=== PATIENT | male | born 1950 | race Caucasian/White ===

== ENCOUNTER → 2020-10-04 | Outpatient (CLI) | payer OTHER | LOC: M.MRI 08:19 | PROVIDERS: ATTEND Orthopaedic Surgery | DX: M17.11 Unilateral primary osteoarthritis, right knee (principal); G57.02 Lesion of sciatic nerve, left lower limb; M70.62 Trochanteric bursitis, left hip ==

== ENCOUNTER → 2021-04-02 | Outpatient (CLI) | payer OTHER ==
[~2021-04-02] MED LIST: ADULT LOW DOSE81 MG PO; CHLORTHALIDONE25 MG PO; COREG6.25 MG PO; ELIQUIS5 MG PO; HYDRALAZINE 2525 M1 PO; LOSARTAN POTASS50 MG PO; MEN'S ONE DAIL1 EAC1 PO; NORVASC5 MG PO; ROSUVASTATIN CA20 MG PO; VITAMIN D310 MC2 PO
[2021-04-02 09:07] LABS: ABSOLUTE EOSINOPHILS 0.1 thou/uL (0.0-0.7); ABSOLUTE LYMPHOCYTES 2.5 thou/uL (0.8-5.3); ABSOLUTE MONOCYTES 0.9 thou/uL (0.0-1.2); ABSOLUTE NEUTROPHILS 6.2 thou/uL (1.6-8.1); BASOPHILS 0.5 %; EOSINOPHILS 1.3 %; HEMATOCRIT 41.8 % (42.0-52.0); HEMOGLOBIN 14.5 gm/dL (14.0-18.0); LYMPHOCYTES 25.6 %; MCHC 34.6 g/dL (28.0-37.0); MCV 89.4 fL (80.0-100.0); MONOCYTES 9.2 %; MPV 6.6 fl. (7.2-11.1); NUCLEATED RBCS 0 /100WBC; PLATELET COUNT* 285 thou/uL (150-400); POLYS 63.4 %; RBC 4.68 mil/uL (4.50-6.00); RDW-CV 13.7 % (10.5-14.5); WBC 9.8 thou/uL (4.0-11.0)
[2021-04-02 09:12] LABS: URINE BILIRUBIN NEGATIVE (Negative); URINE BLOOD NEGATIVE (Negative); URINE CLARITY CLEAR; URINE COLOR YELLOW; URINE GLUCOSE-RANDOM NEGATIVE (Negative); URINE KETONES NEGATIVE (Negative); URINE LEUKOCYTES-REFLEX NEGATIVE (Negative); URINE NITRITE-REFLEX NEGATIVE (Negative); URINE PROTEIN NEGATIVE (Negative); URINE SPECIFIC GRAVITY 1.025 (1.005-1.030)
[2021-04-02 09:16] LABS: PROTIME 10.9 Seconds (9.20-11.50)
[2021-04-02 09:37] LABS: ALBUMIN 3.5 g/dL (3.4-5.0); CALCIUM 8.4 mg/dL (8.5-10.1); POTASSIUM 3.6 mmol/L (3.5-5.1); TOTAL BILIRUBIN 0.7 mg/dL (<0.1-1.0)
--- NOTE | 2021-04-02 11:20 | EKG ---
[place] [address] ELECTROCARDIOGRAM REPORT Name: GRACIE SORTO Room: [facility]#: [id number] Admission: 04/02/21 Attend Phys: Gracie Silva, Discharge: Date of : 46 Date of Service: 04/02/21 1009 Report #: [id number] THIS REPORT FOR: //name// [facility] Test Date: 2021-04-02 Test Time: 10:09:27 Pat Name: GRACIE SORTO Department: Room: Gender: Tire Tester: ILEANA MERRITT : 1950 Requested By: Gracie Silva Order Number: [id number] Evaristo MD: Earl Harley Measurements Intervals [place] Rate: 57 P: 27 MI: 201 QRS: 22 QRSD: 157 T: 82 QT: 471 QTc: 459 Interpretive Statements Sinus bradycardia Right bundle branch block Baseline wander in lead(s) V2,V6 Compared to ECG 06/24/2009 09:18:45 Right bundle-branch block now present Electronically Signed On 04-02-2021 11:19:58 CDT by Earl Harley [email or web address] <ELECTRONICALLY SIGNED> By: Earl Harley MD, [facility] 04/02/21 1119 1009 1009 Earl Harley MD, [facility] /EPI
== END ==
LOC: M.LAB 05:35
PROVIDERS: ATTEND Orthopaedic Surgery
DX: Z01.818 Encounter for other preprocedural examination (principal); Z01.812 Encounter for preprocedural laboratory examination; I45.10 Unspecified right bundle-branch block; R00.1 Bradycardia, unspecified; M16.11 Unilateral primary osteoarthritis, right hip

== ENCOUNTER → 2021-04-08 | Outpatient (CLI) | payer OTHER ==
[~2021-04-08] VITALS: Ht 170.2 cm; Wt 84.8 kg
--- NOTE | ~2021-04-08 | H ---
[address] [address] HISTORY AND PHYSICAL Name: GRACIE SORTO Freya Room: [address] Alfredo Thomson#: [id number] Admission: 04/08/21 Attend Phys: Jeramie Solorzano Discharge: 04/08/21 Date of : 46 Report #: [id number] THIS REPORT FOR: cc: Charanjit Murphy Vincent R. DO [facility],Medical Records Staff ~ For History and Physical please refer to the orthopedic office note in the patient's medical record. By: [id number] Records Staff BRITTNEY /MICHAEL
== END ==
LOC: M.ORTHSURG 06:18 → M.LAB 08:43 → M.ORTHSURG 08:43 → M.TBA 08:43 → EDSTATUS 12:57 → M.ORTHSURG 15:48 → EDSTATUS 16:44 → M.ORTHSURG 16:49
PROVIDERS: ATTEND Internal Medicine
DX: M16.12 Unilateral primary osteoarthritis, left hip (principal)

== ENCOUNTER 2021-04-22 07:01 | Observation (INO) | payer OTHER ==
[~2021-04-22] VITALS: Ht 170.2 cm; Wt 83.9 kg
--- NOTE | ~2021-04-22 | OP ---
[facility] [address] [place] [address] OPERATIVE REPORT Name: GRACIE SORTO Room: [address] Alfredo Thomson#: [id number] Admission: 04/22/21 Attend Phys: Jeramie Solorzano Discharge: Date of : 46 Report #: [id number] THIS REPORT FOR: cc: Charanjit Murphy Vincent R. DO Greiner, Robert F. II DO ~ DATE OF SURGERY: 04/22/2021 PREOPERATIVE DIAGNOSIS: Left hip osteoarthritis. POSTOPERATIVE DIAGNOSIS: Left hip osteoarthritis. PROCEDURE: Left total hip arthroplasty. SURGEON: Gracie Silva II, DO. COCONUT BOILER: CATHIE Mauro. ANESTHESIA: General endotracheal. ESTIMATED BLOOD LOSS: 300 mL. ANTIBIOTICS: Ancef preoperatively. DRAINS: Medium Hemovac. COMPLICATIONS: None. CONDITION: The patient stable to recovery room. IMPLANTS: Listed in operative record and progress note. BRIEF HISTORY: The patient in the preoperative area. Preoperative H and P was performed. Site was marked, questions were answered. Risks and benefits were discussed with the patient in detail about the surgery. The patient wished to proceed assuming all risks. DESCRIPTION OF PROCEDURE: The patient was taken to the operative suite, placed supine on the operating table, given appropriate anesthesia. The patient's operative hip was placed on the [place] table leg sanchez and sterilely prepped and draped in supine position. Surgery began by longitudinal incision over the anterior portion of the hip was carried down to subcutaneous tissues. A small doris was made in tensor fascia, it was then split along its fibers and retracted laterally. An H capsulotomy was then performed and careful hemostasis was maintained with electrocautery and Aquamantys. The head and neck cutting alignment guide was then checked with fluoroscopic [place] [address] OPERATIVE REPORT Name: GRACIE SORTO Room: [address] Alfredo Thomson#: [id number] Admission: 04/22/21 Attend Phys: Jeramie Solorzano Discharge: Date of : 46 Report #: [id number] was made in the head and neck and this was removed. Attention was turned to the acetabulum. Excess labrum was removed. It was then reamed in sequential fashion to an appropriate size. This showed excellent bleeding bone and excellent position under fluoroscopic guidance. The acetabular cup was then malleted into position and secured with cancellous screws. Metal liner was then applied. The patient's leg was then rotated and extended on the [place] table to expose the femur. It was then broached in sequential fashion up to appropriate size. The appropriate neck was then trialed with appropriate head length and showed excellent fit and fill and excellent stability of the hip through all range of motion. These trials were then removed. The final stem was then malleted into position and the final head was then malleted into position. It was reduced in appropriate fashion, checked with C-arm for appropriate leg length and shown to have excellent leg length throughout the exam without evidence of dislocation upon range of motion and shuck testing. Wound was then copiously irrigated. Hemostasis obtained with electrocautery and pain cocktail was injected. Drain was activated. The H capsulotomy was then closed with 1 Vicryl in nawdoj-ab-wabsh fashion. Tensor fascia was closed with a #1 Vicryl in running fashion. Skin was closed with 2-0 Vicryl and running 3-0 Monocryl. Dermabond dressing applied. The patient transported to recovery in stable condition. Counts were correct throughout the procedure. By: [id number] 17Gracie Silva II, DO /nt
[2021-04-22 10:15] LABS: HEMATOCRIT 42.6 % (42.0-52.0); HEMOGLOBIN 14.6 gm/dL (14.0-18.0); MCH 30.8 pg (26.0-34.0); MCHC 34.3 g/dL (28.0-37.0); MCV 89.6 fL (80.0-100.0); MPV 6.7 fl. (7.2-11.1); RBC 4.75 mil/uL (4.50-6.00); RDW-CV 13.5 % (10.5-14.5); WBC 10.5 thou/uL (4.0-11.0)
[2021-04-22 10:26] LABS: CALCIUM 8.7 mg/dL (8.5-10.1); CREATININE 0.9 mg/dL (0.6-1.3); POTASSIUM 3.4 mmol/L (3.5-5.1)
[2021-04-22 22:18] VITALS: BP 112/65
[2021-04-23] VITALS (8 sets, daily range): BP systolic 109–119; BP diastolic 52–62
[2021-04-23 05:09] LABS: HEMATOCRIT 32.9 % (42.0-52.0)
[2021-04-23 05:21] LABS: HEMOGLOBIN 11.2 gm/dL (14.0-18.0)
[2021-04-23 13:02] LABS: HEMATOCRIT 33.6 % (42.0-52.0); HEMOGLOBIN 11.6 gm/dL (14.0-18.0)
== END 2021-04-23 14:00 | disposition home health service (06) ==
LOC: M.ORTHSURG 07:01 → M.TBA 09:46 → M.3W 16:44 → M.ORTHSURG 18:11 → M.3W 04-23 14:00
PROVIDERS: Anesthesiology; Internal Medicine; Orthopaedic Surgery; ADMIT Internal Medicine; ATTEND Internal Medicine
DX: M16.12 Unilateral primary osteoarthritis, left hip (principal); Z20.822 Contact with and (suspected) exposure to COVID-19; I10 Essential (primary) hypertension; E11.9 Type 2 diabetes mellitus without complications; I25.2 Old myocardial infarction; R33.9 Retention of urine, unspecified; Z79.82 Long term (current) use of aspirin; Z79.899 Other long term (current) drug therapy; Z95.1 Presence of aortocoronary bypass graft